=== PATIENT | female | born 1950 | race Caucasian/White ===

== ENCOUNTER 2018-12-24 19:36 | Observation (INO) | payer MEDICARE, OTHER ==
[2018-12-24] MEDS: LIDOCAINE 4% CR TOP (20:50)
[2018-12-24] MEDS: SOD CHLORIDE 0.9% 500 ML IV (22:08)
[2018-12-24 22:10] LABS: ADD MAN DIFF? NO
[2018-12-24 22:12] LABS: WHITE BLOOD COUNT 7.2 10^3/ul (4.8-10.8)
[2018-12-24 22:12] LABS: ABNORMAL IP MESSAGE 1; BASOPHILS % 0.6 % (0.0-2.0); EOSINOPHILS # 0.2 10^3/ul (0.0-0.5); EOSINOPHILS % 2.9 % (0.0-7.0); HEMATOCRIT 21.2 % (37.0-47.0); LYMPHOCYTES % 14.1 % (15.0-51.0); MEAN CORPUSCULAR HEMOGLOBIN 23.3 pg (29.0-33.0); MEAN CORPUSCULAR HGB CONC 28.8 g/dl (32.0-37.0); MEAN CORPUSCULAR VOLUME 80.9 fl (82.0-101.0); MEAN PLATELET VOLUME 9.3 fl (7.4-10.4); MONOCYTE # 0.9 10^3/ul (0.3-0.9); NEUTROPHILS % 69.7 % (39.0-77.0); PLATELET COUNT 262 10^3/UL (140-415); RED BLOOD COUNT 2.62 10^6/ul (4.20-5.40); RED CELL DISTRIBUTION WIDTH 15.8 % (11.5-14.5)
[2018-12-24 22:18] LABS: HEMOGLOBIN 6.1 g/dl (12.0-16.0); POSITIVE DIFF @See below
[2018-12-24 22:19] LABS: PATH REVIEW? YES
[2018-12-24] MEDS ORDERED: ACETAMINOPHEN 325 MG TAB PO ×2 (22:30→23:30)
[2018-12-24] MEDS ORDERED: ONDANSETRON 4 MG INJ IV (22:30)
[2018-12-24] MEDS: DIPHENHYDRAMINE 50 MG INJ IV (22:30)
[2018-12-24 22:34] LABS: INR 1.01; PROTIME 13.4 Sec (11.9-14.9)
[2018-12-24 22:35] LABS: ANION GAP 7 (5-13); BLOOD UREA NITROGEN 39 mg/dl (7-20); CALCIUM 8.5 mg/dl (8.4-10.2); CARBON DIOXIDE 24 mmol/L (21-31); CHLORIDE 106 mmol/L (97-110); CREATININE 2.34 mg/dl (0.44-1.00); Estimated GFR 21 mL/min (>60); GLUCOSE 106 mg/dl (70-220); PARTIAL THROMBOPLASTIN TIME 38.3 Sec (23.0-35.0); POTASSIUM 5.4 mmol/L (3.5-5.1); SODIUM 137 mmol/L (135-144)
[2018-12-24 22:47] LABS: TROPONIN-I < 0.012 ng/ml (0.000-0.120)
[2018-12-24] MEDS ORDERED: NACL 0.9% 3 ML SYG IV (23:30)
[2018-12-24] MEDS ORDERED: ALBUTEROL/IPRATROPIUM (NEB) 3 ML AMP HHN (23:30)
[2018-12-25] MEDS: DIPHENHYDRAMINE 25 MG CAP PO (00:46)
[2018-12-25 00:54] LABS: IMMEDIATE SPIN CROSSMATCH 1 2
[2018-12-25] MEDS: ONDANSETRON 4 MG INJ IV (04:42)
[2018-12-25] MEDS: PANTOPRAZOLE (EC) 40 MG TAB PO (06:11)
[2018-12-25] MEDS: HYDROCODONE/APAP (10/325) TAB PO ×5 (08:18→23:10)
[2018-12-25] MEDS ORDERED: ONDANSETRON 4 MG TAB PO (10:00)
[2018-12-25] MEDS ORDERED: BACLOFEN 10 MG TAB PO (10:00)
[2018-12-25 10:13] LABS: ADD MAN DIFF? NO
[2018-12-25 10:17] LABS: WHITE BLOOD COUNT 4.8 10^3/ul (4.8-10.8)
[2018-12-25 10:17] LABS: BASOPHIL # 0.1 10^3/ul (0.0-0.1); EOSINOPHILS # 0.1 10^3/ul (0.0-0.5); EOSINOPHILS % 2.3 % (0.0-7.0); HEMATOCRIT 28.9 % (37.0-47.0); HEMOGLOBIN 8.6 g/dl (12.0-16.0); LYMPHOCYTES # 0.8 10^3/ul (0.8-2.9); MEAN CORPUSCULAR HEMOGLOBIN 24.9 pg (29.0-33.0); MEAN CORPUSCULAR HGB CONC 29.8 g/dl (32.0-37.0); MEAN CORPUSCULAR VOLUME 83.8 fl (82.0-101.0); MEAN PLATELET VOLUME 9.8 fl (7.4-10.4); MONOCYTE # 0.8 10^3/ul (0.3-0.9); MONOCYTES % 16.1 % (0.0-11.0); NEUTROPHILS % 62.6 % (39.0-77.0); PLATELET COUNT 280 10^3/UL (140-415); RED BLOOD COUNT 3.45 10^6/ul (4.20-5.40); RED CELL DISTRIBUTION WIDTH 16.2 % (11.5-14.5)
[2018-12-25 10:25] LABS: HEMOGLOBIN A1C 5.7 % (0-5.9)
[2018-12-25 10:45] LABS: ALANINE AMINOTRANSFERASE 14 IU/L (13-69); ALBUMIN 3.1 g/dl (3.3-4.9); ALBUMIN/GLOBULIN RATIO 0.79; ALKALINE PHOSPHATASE 91 IU/L (42-121); ANION GAP 5 (5-13); ASPARTATE AMINO TRANSFERASE 13 IU/L (15-46); BILIRUBIN,INDIRECT 0.4 mg/dl (0-1.1); BILIRUBIN,TOTAL 0.4 mg/dl (0.2-1.3); BLOOD UREA NITROGEN 29 mg/dl (7-20); CALCIUM 8.4 mg/dl (8.4-10.2); CARBON DIOXIDE 22 mmol/L (21-31); CHLORIDE 113 mmol/L (97-110); CREATININE 1.82 mg/dl (0.44-1.00); Estimated GFR 28 mL/min (>60); GLUCOSE 95 mg/dl (70-220); MAGNESIUM 2.1 mg/dl (1.7-2.5); PHOSPHORUS 3.8 mg/dl (2.5-4.9); SODIUM 140 mmol/L (135-144)
[2018-12-25 10:46] LABS: IRON 173 ug/dl (35-150)
[2018-12-25 10:56] LABS: % IRON SATURATION 58 % SAT (22-52); TOTAL IRON BINDING CAPACITY 297 ug/dl (241-421)
[2018-12-25] MEDS: SOD FERRIC GLUC COMPLX 125 MG in SOD CHLORIDE 0.9% 100 ML IVPB (11:00)
[2018-12-25 12:28] LABS: THYROID STIMULATING HORMONE 0.537 MIU/L (0.465-4.680)
[2018-12-25] MEDS: clonAZEPAM 0.5 MG TAB PO ×2 (13:49→21:14)
[2018-12-25] MEDS ORDERED: AL HYDROX/MG TRISILICATE TAB PO (15:00)
[2018-12-25 17:02] LABS: OCCULT BLOOD STOOL POSITIVE (NEGATIVE)
[2018-12-25] MEDS: GABAPENTIN 300 MG CAP PO (21:14)
[2018-12-26] MEDS: HYDROCODONE/APAP (10/325) TAB PO ×2 (05:04→09:41)
[2018-12-26] MEDS: PANTOPRAZOLE (EC) 40 MG TAB PO (06:23)
[2018-12-26] MEDS: SOD CHLORIDE 0.9% 0 ML IV (06:30)
[2018-12-26] MEDS: QUETIAPINE 100 MG TAB PO (09:00)
[2018-12-26] MEDS: clonAZEPAM 0.5 MG TAB PO (09:36)
[2018-12-26] MEDS: GABAPENTIN 300 MG CAP PO (09:41)
[2018-12-26] MEDS: HEPARIN (100 UNITS/ML) 5 ML SYG CATHETER (12:34)
[2018-12-27] MEDS ORDERED: HYDROCORTISONE 1% 28.35 GM OINT TOP (09:00)
[2018-12-27] MEDS ORDERED: MUPIROCIN 2% 22 GM OINT TOP (09:00)
== END 2018-12-26 13:15 | disposition home or self-care (01) ==
LOC: PP2 23:10 → E/R 19:36 → PP2 22:21
DX: D64.9 Anemia, unspecified (principal); K51.90 Ulcerative colitis, unspecified, without complications; N18.3 Chronic kidney disease, stage 3 (moderate); N17.9 Acute kidney failure, unspecified; L97.919 Non-pressure chronic ulcer of unspecified part of right lower leg with unspecified severity; F32.9 Major depressive disorder, single episode, unspecified; J45.909 Unspecified asthma, uncomplicated; Z86.718 Personal history of other venous thrombosis and embolism
CPT/HCPCS: 36415; 36430; 76775; 80048; 80053; 82270; 82728; 83036; 83540; 83735; 84100; 84443; 84484; 85025; 85610; 85730; 86850; 86900; 86901; 86920; 93005; 97161; 99285-25; G0378

== ENCOUNTER 2019-01-14 13:21 | Inpatient (IN) | payer MEDICARE, OTHER ==
[2019-01-14 14:46] LABS: ADD MAN DIFF? NO
[2019-01-14 14:49] LABS: BASOPHIL # 0.1 10^3/ul (0.0-0.1); BASOPHILS % 0.6 % (0.0-2.0); EOSINOPHILS # 0.2 10^3/ul (0.0-0.5); EOSINOPHILS % 2.9 % (0.0-7.0); HEMATOCRIT 32.6 % (37.0-47.0); HEMOGLOBIN 9.7 g/dl (12.0-16.0); LYMPHOCYTES # 1.4 10^3/ul (0.8-2.9); LYMPHOCYTES % 17.8 % (15.0-51.0); MEAN CORPUSCULAR HEMOGLOBIN 26.1 pg (29.0-33.0); MEAN CORPUSCULAR HGB CONC 29.8 g/dl (32.0-37.0); MEAN CORPUSCULAR VOLUME 87.9 fl (82.0-101.0); MEAN PLATELET VOLUME 9.2 fl (7.4-10.4); MONOCYTE # 0.8 10^3/ul (0.3-0.9); MONOCYTES % 9.5 % (0.0-11.0); NEUTROPHIL # 5.5 10^3/ul (1.6-7.5); NEUTROPHILS % 68.8 % (39.0-77.0); PLATELET COUNT 284 10^3/UL (140-415); RED BLOOD COUNT 3.71 10^6/ul (4.20-5.40); RED CELL DISTRIBUTION WIDTH 21.8 % (11.5-14.5)
[2019-01-14 15:07] LABS: INR 1.05; PROTIME 13.8 Sec (11.9-14.9); PT RATIO 1.1
[2019-01-14 15:08] LABS: PARTIAL THROMBOPLASTIN TIME 29.2 Sec (23.0-35.0)
[2019-01-14 15:18] LABS: ANION GAP 10 (5-13); BLOOD UREA NITROGEN 60 mg/dl (7-20); CALCIUM 9.2 mg/dl (8.4-10.2); CARBON DIOXIDE 18 mmol/L (21-31); CHLORIDE 109 mmol/L (97-110); CREATININE 2.74 mg/dl (0.44-1.00); Estimated GFR 17 mL/min (>60); GLUCOSE 95 mg/dl (70-220); SODIUM 137 mmol/L (135-144)
[2019-01-14 15:30] LABS: TROPONIN-I < 0.012 ng/ml (0.000-0.120)
[2019-01-14] MEDS ORDERED: DEXTROSE 50% 50 ML SYRINGE IV (16:00)
[2019-01-14] MEDS ORDERED: ONDANSETRON 4 MG INJ IV (16:30)
[2019-01-14] MEDS ORDERED: ACETAMINOPHEN 325 MG TAB PO (16:30)
[2019-01-14] MEDS ORDERED: FLUOCINONIDE 0.05%/EMOLL 15 GM CR TOP (16:30)
[2019-01-14] MEDS: FLUOCINONIDE 0.05% 15 GM CR TOP (16:44)
[2019-01-14] MEDS: ALBUTEROL 0.5% (NEB) 2.5 MG/0.5 ML AMP INH (16:55)
[2019-01-14] MEDS: SOD CHLORIDE 0.9% 1,000 ML IV (16:57)
[2019-01-14] MEDS: INSULIN REGULAR, HUMAN 100 UNIT/1 ML 3ML VIAL IVP (16:58)
[2019-01-14] MEDS ORDERED: NACL 0.9% 3 ML SYG IV (17:00)
[2019-01-14] MEDS: DEXTROSE 50% 50 ML SYRINGE IV (17:01)
[2019-01-14] MEDS: HYDROCODONE/APAP (10/325) TAB PO ×2 (17:09→21:24)
[2019-01-14] MEDS: clonAZEPAM 0.5 MG TAB PO ×3 (18:31→22:37)
[2019-01-14] MEDS: QUETIAPINE 100 MG TAB PO (22:48)
[2019-01-15] MEDS: HYDROCODONE/APAP (10/325) TAB PO ×4 (04:30→22:30)
[2019-01-15 05:55] LABS: ADD MAN DIFF? NO
[2019-01-15 06:18] LABS: ABNORMAL IP MESSAGE 1; BASOPHIL # 0.1 10^3/ul (0.0-0.1); BASOPHILS % 0.7 % (0.0-2.0); EOSINOPHILS # 0.2 10^3/ul (0.0-0.5); HEMATOCRIT 31.5 % (37.0-47.0); HEMOGLOBIN 9.2 g/dl (12.0-16.0); LYMPHOCYTES # 1.4 10^3/ul (0.8-2.9); LYMPHOCYTES % 19.3 % (15.0-51.0); MEAN CORPUSCULAR HEMOGLOBIN 26.7 pg (29.0-33.0); MEAN CORPUSCULAR HGB CONC 29.2 g/dl (32.0-37.0); MEAN CORPUSCULAR VOLUME 91.6 fl (82.0-101.0); MEAN PLATELET VOLUME 9.5 fl (7.4-10.4); MONOCYTE # 0.8 10^3/ul (0.3-0.9); MONOCYTES % 10.9 % (0.0-11.0); NEUTROPHIL # 4.6 10^3/ul (1.6-7.5); NEUTROPHILS % 65.5 % (39.0-77.0); PLATELET COUNT 234 10^3/UL (140-415); RED BLOOD COUNT 3.44 10^6/ul (4.20-5.40); RED CELL DISTRIBUTION WIDTH 22.1 % (11.5-14.5)
[2019-01-15 06:25] LABS: POSITIVE DIFF @See below
[2019-01-15 06:37] LABS: ALANINE AMINOTRANSFERASE 8 IU/L (13-69); ALBUMIN 3.4 g/dl (3.3-4.9); ALBUMIN/GLOBULIN RATIO 1.03; ALKALINE PHOSPHATASE 69 IU/L (42-121); ANION GAP 9 (5-13); ASPARTATE AMINO TRANSFERASE 16 IU/L (15-46); BILIRUBIN,INDIRECT 0.2 mg/dl (0-1.1); BILIRUBIN,TOTAL 0.2 mg/dl (0.2-1.3); BLOOD UREA NITROGEN 54 mg/dl (7-20); CALCIUM 8.5 mg/dl (8.4-10.2); CARBON DIOXIDE 18 mmol/L (21-31); CHLORIDE 109 mmol/L (97-110); CREATININE 2.05 mg/dl (0.44-1.00); Estimated GFR 24 mL/min (>60); GLUCOSE 93 mg/dl (70-220); POTASSIUM 5.1 mmol/L (3.5-5.1); SODIUM 136 mmol/L (135-144); TOTAL PROTEIN 6.7 g/dl (6.1-8.1)
[2019-01-15 07:03] LABS: HEMOGLOBIN A1C 5.5 % (0-5.9)
[2019-01-15] MEDS ORDERED: QUETIAPINE 100 MG TAB PO (09:00)
[2019-01-15] MEDS: clonAZEPAM 0.5 MG TAB PO ×2 (09:00→20:59)
[2019-01-15] MEDS: BACLOFEN 10 MG TAB PO (14:56)
[2019-01-15] MEDS: QUETIAPINE 100 MG TAB PO (20:59)
[2019-01-15] MEDS: GABAPENTIN 300 MG CAP PO (20:59)
[2019-01-16] MEDS: HYDROCODONE/APAP (10/325) TAB PO ×2 (04:30→08:50)
[2019-01-16] MEDS: clonAZEPAM 0.5 MG TAB PO (08:50)
[2019-01-16] MEDS: GABAPENTIN 300 MG CAP PO (08:50)
[2019-01-16] MEDS ORDERED: HEPARIN (100 UNITS/ML) 5 ML SYG CATHETER (13:30)
== END 2019-01-16 14:50 | disposition home or self-care (01) | DRG 74 ==
LOC: E/R 13:21 → 6WM 16:12
PROVIDERS: Internal Medicine
DX: G62.9 Polyneuropathy, unspecified (principal); J45.909 Unspecified asthma, uncomplicated; N18.3 Chronic kidney disease, stage 3 (moderate); G89.4 Chronic pain syndrome; I87.8 Other specified disorders of veins; Z88.0 Allergy status to penicillin; Z86.718 Personal history of other venous thrombosis and embolism
CPT/HCPCS: 36415; 70450; 70551; 71045; 72141; 80048; 80053; 82962; 83036; 84484; 85025; 85610; 85730; 93005; 94664; 99285-25